=== PATIENT | female | born 1945 | race Two or more races ===

== ENCOUNTER 2023-08-31 16:37 | Emergency (ER) | payer BC, OTHER ==
[~2023-08-31] VITALS: Ht 165.1 cm; Wt 91.6 kg
[2023-08-31] MEDS: ALBUTEROL SULF 2.5 MG/0.5ML(0.5%) NEB SOLN HHN ONE (17:15)
[2023-08-31] MEDS: IPRATROPIUM BROM 0.5 MG/2.5ML INH SOL HHN ONE (17:15)
[2023-08-31] MEDS: ALBUTEROL SULF 2.5 MG/0.5ML(0.5%) NEB SOLN NEB ONE (19:00)
[2023-08-31] MEDS: IPRATROPIUM BROM 0.5 MG/2.5ML INH SOL NEB ONE (19:00)
[2023-08-31 19:05] LABS: Basophils # (auto) 0 10 ^3/uL (0-0.2); Basophils % (auto) 0.2 % (0.0-2.0); Chloride 104 mmol/L (98-107); Eosinophils # (auto) 0.1 10 ^3/uL (0-0.8); Eosinophils % (auto) 1.3 % (0.0-7.0); Hematocrit 46.1 % (36.0-46.0); Hemoglobin 15.5 g/dL (12.2-16.2); Lymphocytes # (auto) 1.6 10 ^3/uL (0.4-5.4); Lymphocytes % (auto) 41.5 % (10.0-50.0); Mean Corpuscular Hemoglobin 29.5 pg (28.0-32.0); Mean Corpuscular Hgb Conc. 33.7 g/dL (32.0-36.0); Mean Corpuscular Volume 87.6 fL (80.0-100.0); Monocytes # (auto) 0.5 10 ^3/uL (0-1.3); Monocytes % (auto) 11.8 % (0.0-12.0); Neutrophils # (auto) 1.8 10 ^3/uL (1.6-8.6); Neutrophils % (auto) 45.2 % (37.0-80.0); Potassium 3.6 mmol/L (3.5-5.1); Red Blood Cells 5.26 10^6/uL (4.0-5.20); Red Cell Distribution Width 12.8 % (11.8-14.3); Sodium 140 mmol/L (136-145)
[2023-08-31 19:06] LABS: Anion Gap 8 (5-15); Carbon Dioxide 28 mmol/L (20-30)
[2023-08-31 19:07] LABS: Calcium 9.7 mg/dL (8.5-10.1)
[2023-08-31 19:11] LABS: BUN/Creatinine Ratio 14.4 (10.0-20.0); Blood Urea Nitrogen 13 mg/dL (9-23); Glucose 94 mg/dL (74-106)
[2023-08-31] MEDS ORDERED: ALBU0.084 NEB (19:32)
[2023-08-31] MEDS ORDERED: PRED20TA2 PO (19:32)
[2023-08-31 19:37] VITALS: BP 113/52; TEMP 98.7
[2023-08-31 19:39] VITALS: PULSE 102; RESP 16; O2SAT 93
[2023-08-31] MEDS: predniSONE 20 MG TAB PO ONE (19:46)
== END 2023-08-31 19:50 | disposition home or self-care (01) ==
LOC: ER 16:37
DX: R06.00 Dyspnea, unspecified (principal); J45.909 Unspecified asthma, uncomplicated
CPT/HCPCS: 36415; 71046; 80048; 83880; 84484; 85025; 94640; 99284; J7512; J7644